=== PATIENT | female | born 1995 | race Two or more races ===

== ENCOUNTER 2021-06-20 09:38 | Emergency (ER) | payer MEDICAID, OTHER ==
[~2021-06-20] VITALS: Ht 149.9 cm; Wt 53.1 kg
[2021-06-20 10:21] VITALS: BP 121/79
[2021-06-20 10:28] LABS: Urine Bacteria NONE SEEN /hpf (None Seen); Urine Blood Negative /uL (Negative); Urine Mucus FEW (None Seen); Urine Specific Gravity 1.031 (1.001-1.035); Urine WBC 1 /hpf (0 - 5)
[2021-06-20 10:30] LABS: Basophils # (auto) 0 10 ^3/uL (0-0.2); Basophils % (auto) 0.6 % (0.0-2.0); Eosinophils # (auto) 0.1 10 ^3/uL (0-0.8); Hematocrit 37.2 % (36.0-46.0); Hemoglobin 12.4 g/dL (12.2-16.2); Lymphocytes # (auto) 1.5 10 ^3/uL (0.4-5.4); Lymphocytes % (auto) 19.8 % (10.0-50.0); Mean Corpuscular Hemoglobin 28.6 pg (28.0-32.0); Mean Corpuscular Hgb Conc. 33.2 g/dL (32.0-36.0); Mean Corpuscular Volume 86.1 fL (80.0-100.0); Monocytes # (auto) 0.4 10 ^3/uL (0-1.3); Monocytes % (auto) 5.3 % (0.0-12.0); Neutrophils # (auto) 5.5 10 ^3/uL (1.6-8.6); Neutrophils % (auto) 73.3 % (37.0-80.0); Red Blood Cells 4.32 10^6/uL (4.0-5.20); Red Cell Distribution Width 13.8 % (11.8-14.3); White Blood Cell 7.5 10^3/uL (4.4-10.8)
[2021-06-20 10:59] LABS: BUN/Creatinine Ratio 21.4; Calcium 9.2 mg/dL (8.5-10.1); Potassium 3.9 mmol/L (3.5-5.1)
[2021-06-20] MEDS ORDERED: IBUP600T27 PO (11:37)
[2021-06-20] MEDS ORDERED: IBUPROFEN 600 MG TAB PO ONE (11:45)
[2021-06-20] MEDS ORDERED: KETOROLAC TROMETH 60MG/2ML VIAL IM ONE (11:45)
== END 2021-06-20 11:49 | disposition home or self-care (01) ==
LOC: ER 09:38
DX: N83.201 Unspecified ovarian cyst, right side (principal); Z32.02 Encounter for pregnancy test, result negative
CPT/HCPCS: 36415; 76830; 76856; 80048; 81001; 81025; 85025